=== PATIENT | female | born 1935 | race Two or more races ===

== ENCOUNTER 2019-06-01 16:40 | Emergency (ER) | payer OTHER ==
[~2019-06-01] VITALS: Ht 152.4 cm; Wt 54.4 kg
[2019-06-01 18:49] VITALS: BP 130/82
== END 2019-06-01 18:56 | disposition home or self-care (01) ==
LOC: ER 16:49
DX: S00.03XA Contusion of scalp, initial encounter (principal); W18.09XA Striking against other object with subsequent fall, initial encounter; Y93.89 Activity, other specified; Y92.89 Other specified places as the place of occurrence of the external cause; Y99.8 Other external cause status
CPT/HCPCS: 70450